=== PATIENT | female | born 1935 | race Caucasian/White ===

== ENCOUNTER 2017-03-02 08:23 | Outpatient (CLI) | payer OTHER | END 2017-03-02 08:29 | disposition home or self-care (01) | LOC: SONOGRAMA 08:23 | DX: D25.9 Leiomyoma of uterus, unspecified (principal) ==

== ENCOUNTER 2017-07-26 13:44 | Outpatient (CLI) | payer OTHER | END 2017-07-26 13:46 | disposition home or self-care (01) | LOC: SONOGRAMA 13:44 | DX: E03.8 Other specified hypothyroidism (principal); E04.1 Nontoxic single thyroid nodule ==

== ENCOUNTER 2018-05-26 11:26 | Outpatient (CLI) | payer OTHER | END 2018-05-26 11:35 | disposition home or self-care (01) | LOC: SONOGRAMA 11:26 | DX: E04.1 Nontoxic single thyroid nodule (principal) ==

== ENCOUNTER 2020-09-15 15:21 | Emergency (ER) | payer OTHER ==
[~2020-09-15] VITALS: Ht 152.4 cm; Wt 59.9 kg
[2020-09-15] MEDS ORDERED: COZAAR50 MG (17:20)
[2020-09-15] MEDS ORDERED: CLONAZEPAM0.5 M1 (17:20)
== END 2020-09-15 20:01 | disposition home or self-care (01) ==
LOC: ER 15:21
DX: M54.32 Sciatica, left side (principal); G62.89 Other specified polyneuropathies